=== PATIENT | female | born 1980 | race Caucasian/White ===

== ENCOUNTER 2016-09-17 21:34 | Emergency (ER) | payer MEDICAID ==
[2016-09-18] MEDS ORDERED: SODIUM CHLORIDE 0.9% 1,000 ML ONE (00:13)
[2016-09-18] MEDS ORDERED: ONDANSETRON 4 MG VIAL ONE (00:13)
[2016-09-18] MEDS ORDERED: SODIUM CHLORIDE 0.9% 100 ML IV ONE (01:16)
[2016-09-18] MEDS ORDERED: CEFTRIAXONE 1 GM VIAL ONE (01:16)
[2016-09-18] MEDS ORDERED: ACETAMINOPHEN 325 MG TAB ONE (01:26)
== END 2016-09-18 01:51 | disposition home or self-care (01) ==
LOC: ER 21:34
DX: O23.11 Infections of bladder in pregnancy, first trimester (principal); Z3A.01 Less than 8 weeks gestation of pregnancy
CPT/HCPCS: 36415; 80053; 81001; 82947; 83690; 84702; 85025; 87088; 87804; 87880; 96361; 96365; 96375